=== PATIENT | male | born 1980 | race Caucasian/White ===

== ENCOUNTER 2022-02-18 11:48 | Emergency (ER) | payer OTHER ==
[~2022-02-18] VITALS: Ht 170.2 cm; Wt 88.5 kg
[2022-02-18] MEDS ORDERED: DORZOLAMIDE HCL10 ML OP (12:44)
== END 2022-02-18 20:21 | disposition home or self-care (01) ==
LOC: ER 11:48
DX: R42 Dizziness and giddiness (principal); T50.995A Adverse effect of other drugs, medicaments and biological substances, initial encounter

== ENCOUNTER 2023-03-16 12:11 | Outpatient (CLI) | payer OTHER ==
[~2023-03-16 12:11] MED LIST: DORZOLAMIDE HCL10 ML OP
== END 2023-03-16 12:20 | disposition home or self-care (01) ==
LOC: RAD 12:11
PROVIDERS: ATTEND Podiatrist Foot Surgery
DX: M77.31 Calcaneal spur, right foot (principal); M77.32 Calcaneal spur, left foot